=== PATIENT | male | born 1970 | race Caucasian/White ===

== ENCOUNTER 2016-07-26 12:11 | Emergency (ER) | payer OTHER ==
[~2016-07-26] VITALS: Ht 185.4 cm; Wt 122.7 kg
[2016-07-26 12:13] VITALS: BP 124/69; PULSE 72; RESP 15; O2SAT 96
--- NOTE | 2016-07-26 12:24 | ED.REPORT ---
HPI-Chest Pain 40 and Over Date of Service Jul 26, 2016 ED Provider: Rober Perez MD The patient is a 45 year old male who presents to the emergency department complaining of "sharp" left-sided chest pain that began 4 hours prior to arrival. His pain is exacerbated with inspiration, deep breaths, or laughing. He denies any known injury or trauma. He denies fever, chills, cough or shortness of breath. 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 He recently quit smoking and chewing tobacco but has been "vaping." He denies history of cardiac disease. Nursing Notes Stated Complaint: CHEST PAIN/SOB Chief Complaint: Chest Pain Nursing Notes Reviewed: Yes Allergies: Coded Allergies: No Known Allergies (Verified Allergy, Unknown, 07/26/16) General Time Seen by MD: 12:22 Chief Complaint Chest pain Hx Obtained From: Patient Arrived By: Walk-in Sudden in Onset?: Yes Onset Occurred: 1 - 4 hours ago Symptom Duration: Since onset Location: : Chest left Quality: Painful, Sharp Radiation: : Does not radiate Migration/Movement: Reports: None Severity: Current: Moderate Severity: Maximum: Severe Recent Healthcare: No recent doctor visit, No recent hospitalization Similar Sx Previous: No Risk Factors PERC Rule PERC Result: All PERC criteria "No", PERC rule satisfied Well's Criteria for PE Well's PE Score: 0-2 pts (low risk 3.6%) Past Medical History Past Medical History None Family History Noncontributory Smoking History Former Smoker Social History He recently quit smoking and chewing tobacco but has been "vaping." Other Social History: Good social support, , Local resident 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 Ears / Nose / Throat: Denies: Nasal congestion, Sore throat Physical Exam Initial Vital Signs Vital Signs (First) Date Time Temp Pulse Resp B/P Pulse Ox O2 Delivery O2 Flow Rate FiO2 07/26/16 12:13 36.6 72 15 124/69 96 Room Air Initial VS: Reviewed Head / Eyes: Atraumatic, Normocephalic, PERRL ENT: Mucous membranes moist, Conjunctiva normal, No scleral icterus Neck: Supple, Non-tender, Full range of motion Lymphatic: No lymphadenopathy Extremities: Vascular intact, Neuro intact, No swelling, No tenderness Skin: Warm, Dry, No cyanosis Neurologic: Alert, Oriented, Nonfocal Psychiatric: Mood/affect normal, Behavior normal, Normal thought content General/Constitutional: Awake, Alert, No acute distress, Well appearing, Cooperative Respiratory / Chest: Atraumatic, Breath sounds = bilat, No respiratory distress , No rales, No rhonchi, No wheezing, No retractions, No stridor, No chest wall deformity, No crepitus Diminished Breath Sounds: Positive: Decreased bilateral Reproducible pain with palpation about his anterior costal margin on the left. Cardiovascular: Heart rate NL, Regular rhythm, Heart sounds NL, No gallop, No murmurs, No rubs, Peripheral circulation NL, Pulses = bilaterally, No gross BP differential Abdomen: Atraumatic, Soft, Non-tender, No guarding, No rebound, BS normoactive , No distention, No hernia, No palpable mass, No pulsatile mass Interpretation & Diagnostics Lab Results Interpretation Result Diagram: 07/26/16 1226 07/26/16 1226 Test 07/26/16 12:26 White Blood Count 8.8th/mm3 (3.8-10.1) Red Blood Count 5.69mil/mm3 (4.40-5.80) Hemoglobin 16.2g/dL (13.8-17.2) Hematocrit 45.7% (41.0-50.0) Mean Corpuscular Volume 80.3fL (81-100) Mean Corpuscular Hemoglobin 28.5pg (27.0-35.0) Mean Corpuscular Hemoglobin Concent 35.4% (32.0-37.0) Red Cell Distribution Width 12.8% (12.3-15.4) Platelet Count 213bil/L (150-400) Neutrophils (%) (Auto) 68.3% (40-74) Lymphocytes (%) (Auto) 21.3% (14-46) Monocytes (%) (Auto) 7.8% (4-12) Eosinophils (%) (Auto) 2.3% (0-5) Basophils (%) (Auto) 0.1% (0-3) D-Dimer < 0.5mg/L (<0.50) Sodium Level 141mEq/L (134-144) Potassium Level 4.0mEq/L (3.5-5.2) Chloride Level 104mEq/L (97-108) Carbon Dioxide Level 23mmol/L (18-29) Blood Urea Nitrogen 8mg/dL (6-24) Creatinine 1.02mg/dL (0.76-1.27) Estimat Glomerular Filtration Rate 84mL/min (>59) Glucose Level 114mg/dL (60-99) Calcium Level 9.2mg/dL (8.5-10.1) Magnesium Level 2.0mg/dL (1.6-2.6) Total Bilirubin 0.3mg/dL (0.0-1.2) Aspartate Amino Transf (AST/SGOT) 29U/L (0-50) Alanine Aminotransferase (ALT/SGPT) 43U/L (0-44) Alkaline Phosphatase 73U/L (25-150) Troponin T < 0.010ug/L (0.0-0.011) Total Protein 7.2g/dL (6.4-8.4) Albumin 4.4g/dL (3.4-5.0) ECG Interpretation ECG Interpretation: Sinus rhythm with a rate of 74 Normal axis Normal intervals No ST segment changes No T wave abnormalities No prior EKGs for comparison Time: 12:50 Interpreted by: ED physician X-Ray Chest Interpretation Chest Xray Interpretation: IMPRESSION: No acute process. Dictated by: Delma Ruiz M.D. on 07/26/2016 at 12:31 Interpretation / Wet Read by: Interpret - Radiologist Re-Eval/Medical Decision Med Decision/Clinical Course The patient is a 45 year old male who presents to the emergency department complaining of "sharp" left-sided chest pain that began 4 hours prior to arrival. His pain is exacerbated with inspiration, deep breaths, or laughing. The emergency department the patient is afebrile stable vital signs and examination as above. Of note his chest pain is reproducible with palpation and movement. LABS: CBC unremarkable, CMP unremarkable, troponin negative, d-dimer negative EKG was obtained and interpreted by myself as documented above. CXR: Obtained, reviewed and interpreted by myself shows no evidence of acute infiltrates, effusions or pneumothorax. Cardiac and mediastinal silhouette normal. No bony or soft tissue abnormalities. 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 At this time suspicion for acute coronary syndrome is relatively low. Initial EKG and screening troponin are negative and he is now at 6 hours post initiation of chest pain. D-dimer was obtained and was negative and he had no physical exam findings suggestive of DVT. He was without tachycardia, tachypnea or hypoxia. Pulmonary embolism seems very unlikely at this time he do not feel that further workup for PE is indicated. His presentation is not suggestive of aortic dissection. Chest x-ray does raise no pneumonia or pneumothorax. Reproducibility of pain and lifting heavy objects at work makes musculoskeletal etiology most likely. Patient will apply ice packs and take ibuprofen for pain. Return precautions were reviewed in detail and he was discharged in good condition. Source of Hx: Old records Time of Eval: 14:02 Re-Evaluation/Progress Note: Rechecked the patient. Discussed ressults, diagnosis, and plan for discharge. All questions were addressed. Counseled Regarding: Diagnosis, Lab results, Need for follow-up, When/why to return to ED Discharge & Departure Primary Impression: Chest wall pain Additional Impression: Musculoskeletal chest pain Disposition: Home Discharge Condition All VS Reviewed: Yes Condition: Stable Additional Instructions: Thank you for seeking care at the emergency room. It is difficult for us to make definitive diagnoses in the ED but we believe that you are experiencing musculoskeletal pain. Our primary goal today in the ED was to evaluate you for any life-threatening conditions. Your evaluation was reassuring. You can take Ibuprofen as needed for your pain. You can also try applying ice if this helps. You should follow-up with your primary doctor in the next week. You should return to the ED immediately if you develop increased pain, pain with exertion, shortness of breath, or any other concerning signs or symptoms. Thank you for letting us partake in your care today. Referrals: Isaiah Lopez MD (PCP) Germán Attestation Portions of this note were transcribed by Alejandra Herring. I, Dr. Perez personally performed the history, physical exam and medical decision-making; I reviewed and confirmed the accuracy of the information in the transcribed note. Signed by: Germán Negron, 07/26/2016 and 1410. copies to: Dubek,Rober Landry MD, MD Jul 26, 2016 12:24 Nima,Alejandra Jordan Jul 26, 2016 12:28
--- NOTE | 2016-07-26 12:32 | DRSVH ---
PROCEDURE: X-RAY CHEST ONE VIEW, PORTABLE ([id number]) INDICATIONS: CHEST PAIN TECHNIQUE: One view of the chest was acquired. COMPARISON: None. FINDINGS: Surgical changes and devices: None. Lungs and pleura: No pleural effusions or pneumothorax. Lungs are clear. Mediastinum: Mediastinal contours appear normal. Heart size is normal. Bones and chest wall: No suspicious bony lesions. Overlying soft tissues appear unremarkable. IMPRESSION: No acute process. Dictated by: Delma Ruiz M.D. on 07/26/2016 at 12:31 Approved by: Delma Ruiz M.D. on 07/26/2016 at 12:31
[2016-07-26 12:35] LABS: BASOPHILS % (AUTO) 0.1 % (0-3); EOSINOPHILS % (AUTO) 2.3 % (0-5); MONOCYTES % (AUTO) 7.8 % (4-12); Mean Corpuscular Hemoglobin 28.5 pg (27.0-35.0); Mean Corpuscular Volume 80.3 fL (81-100); NEUTROPHILS % (AUTO) 68.3 % (40-74); Platelet Count 213 bil/L (150-400)
[2016-07-26 13:18] LABS: TROPONIN T < 0.010 ug/L (0.0-0.011)
[2016-07-26 13:58] VITALS: BP 118/68; PULSE 65; RESP 17; O2SAT 95
[2016-07-26 14:39] VITALS: BP 141/67; PULSE 78; RESP 17; O2SAT 99
== END 2016-07-26 14:40 | disposition home or self-care (01) ==
LOC: SED 12:11
DX: R07.89 Other chest pain (principal); Z87.891 Personal history of nicotine dependence